=== PATIENT | female | born 1995 | race Caucasian/White ===

== ENCOUNTER 2018-11-14 12:34 | Emergency (ER) | payer MEDICAID, OTHER ==
[~2018-11-14] VITALS: Wt 74.0 kg
[~2018-11-14 12:34] MED LIST: LEVE750T32 PO
[2018-11-14] MEDS ORDERED: SOD CHLORIDE 0.9% 1,000 ML IV STA (12:46)
[2018-11-14] MEDS ORDERED: ONDANSETRON 4 MG INJ IV STA (12:46)
[2018-11-14] MEDS ORDERED: LEVE100018 PO (13:00)
[2018-11-14] MEDS ORDERED: LEVETIRACETAM 500 MG (PMX) 100 ML IVPB ONE (13:00)
[2018-11-14] MEDS ORDERED: ESLI600T PO (13:01)
--- NOTE | 2018-11-14 13:03 | ERD ---
ER Documentation Chief Complaint Chief Complaint seizure while in class no trauma. lasting a few seconds. no fall HPI 23-year-old woman with a history of seizure disorder using Keppra daily brought in by EMS for tonic-clonic seizure while in class. She remains seated one episode occurred, witnessed by classmates. Patient had no loss of bowel or bladder control, no complaints of fevers or chills, no abdominal pain, no vomiting or diarrhea. Patient's mental status improved and she was transported here by EMS without further complications. She states she has about 2-3 seizures per month but has been normal for her since age 15 ROS All systems reviewed and are negative except as per history of present illness. Medications Home Meds Reported Medications Eslicarbazepine Acetate (Aptiom) 600 Mg Tablet, 600 MG PO Q3PM, #30 TAB 11/14/18 Levetiracetam* (Keppra*) 1,000 Mg Tablet, 1000 MG PO BID, TAB 11/14/18 Discontinued Reported Medications Levetiracetam* (Keppra XR*) 750 Mg Tab.sr.24h, 750 MG PO BID 08/04/13 Allergies Allergies: Coded Allergies: No Known Drug Allergies (Verified Allergy, Mild, 11/14/18) PMhx/Soc Anesthesia Reaction: No Hx Respiratory Disorders: No Hx Cardiac Disorders: No Hx Psychiatric Problems: No Hx Miscellaneous Medical Probl: Yes (SEIZURE X 3 YEARS) Hx Alcohol Use: No Hx Substance Use: No Hx Tobacco Use: No Smoking Status: Never smoker FmHx Family History: No diabetes Physical Exam Vitals Vital Signs Date Temp Pulse Resp B/P (MAP) Pulse Ox O2 O2 Flow FiO2 Time Delivery Rate 11/14/18 98.1 98 20 107/68 98 12:41 (81) Physical Exam GENERAL: Well-developed, well-nourished, well-hydrated, in no apparent distress, looks nontoxic in appearance HEENT: Moist mucous membranes, pink conjunctiva, no cervical spine tenderness or step-off deformities, no goiter, no jaundice or icterus, extraocular movements intact without pain. No submandibular induration, and no pharyngeal erythema NEURO: Alert and oriented 3, cranial nerves II through XII intact bilaterally, pupils equal round reactive to light, no focal deficits or facial asymmetry, sensation intact distally Strength 5/5 in upper and lower extremities bilaterally CARDIAC: Regular rate and rhythm, no murmurs rubs or gallops LUNGS: Clear bilaterally no wheezing crackles or stridor ABDOMEN: Soft nontender, no guarding, no rigidity, no rebound, no psoas sign no obturator sign. Normoactive bowel sounds SKIN: Warm and dry to touch, no abrasions, contusions, or hematomas, no lacerations, no ecchymosis, no target lesions, and without ulcers EXTREMITIES: No clubbing cyanosis or edema, calves are bilaterally symmetrical, no Homans sign, no popliteal cord sign. Distal pulses equal and bilateral PSYCH: Normal affect without agitation or irritability Result Diagram: 11/14/18 1257 11/14/18 1257 Results 24 hrs Laboratory Tests Test 11/14/18 12:57 White Blood Count 6.7 10^3/ul Red Blood Count 4.78 10^6/ul Hemoglobin 14.6 g/dl Hematocrit 43.2 % Mean Corpuscular Volume 90.4 fl Mean Corpuscular Hemoglobin 30.5 pg Mean Corpuscular Hemoglobin Concent 33.8 g/dl Red Cell Distribution Width 11.7 % Platelet Count 243 10^3/UL Mean Platelet Volume 11.6 fl Immature Granulocytes % 0.100 % Neutrophils % 51.4 % Lymphocytes % 38.4 % Monocytes % 7.9 % Eosinophils % 1.9 % Basophils % 0.3 % Nucleated Red Blood Cells % 0.0 /100WBC Immature Granulocytes # 0.010 10^3/ul Neutrophils # 3.4 10^3/ul Lymphocytes # 2.6 10^3/ul Monocytes # 0.5 10^3/ul Eosinophils # 0.1 10^3/ul Basophils # 0.0 10^3/ul Nucleated Red Blood Cells # 0.0 10^3/ul Sodium Level 140 mmol/L Potassium Level 3.9 mmol/L Chloride Level 104 mmol/L Carbon Dioxide Level 28 mmol/L Anion Gap 8 Blood Urea Nitrogen 12 mg/dl Creatinine 0.64 mg/dl Est Glomerular Filtrat Rate mL/min > 60 mL/min Glucose Level 103 mg/dl Calcium Level 9.3 mg/dl Total Bilirubin 0.3 mg/dl Direct Bilirubin 0.00 mg/dl Indirect Bilirubin 0.3 mg/dl Aspartate Amino Transf (AST/SGOT) 36 IU/L Alanine Aminotransferase (ALT/SGPT) 38 IU/L Alkaline Phosphatase 97 IU/L Total Protein 7.5 g/dl Albumin 4.0 g/dl Globulin 3.50 g/dl Albumin/Globulin Ratio 1.14 Lipase 87 U/L Current Medications Medications Dose Sig/Emi Start Time Status Last (Trade) Ordered Route PRN Stop Time Admin Dose Reason Admin 100 ml @ ONCE ONCE 11/14/18 DC 11/14/18 Levetiracetam 400 mls/hr IVPB 13:00 13:10 11/14/18 13:14 Sodium 1,000 ml @ Q1H STAT 11/14/18 11/14/18 Chloride 1,000 mls/hr IV 12:46 13:01 11/14/18 13:45 Ondansetron 4 mg ONCE STAT 11/14/18 DC 11/14/18 HCl (Zofran IV 12:46 13:02 Inj) 11/14/18 12:47 Procedures/MDM IV line was established patient was placed on surveillance system monitor rhythm strip revealed a sinus rhythm at about 80 bpm with upright P and T waves. Patient was afebrile I administered 1 L normal saline IV, Keppra 500 mg IV, Zofran 4 mg IV Patient is using implanted contraceptives and denies . CBC and electrolytes are normal, liver function tests normal differential diagnoses considered, included but not limited to acute coronary syndrome, pulmonary embolism, aortic dissection, abdominal aortic aneurysm, sepsis, stroke, meningitis, encephalitis, pneumonia, appendicitis, cholecyst itis, bowel obstruction, pyelonephritis, nephrolithiasis, cystitis, as well as metabolic, hematologic, and electrolyte abnormalities. As well as abscess, cellulitis, fractures, and dislocations. Patient feels much better at this time, and vital signs are normal, symptoms have improved. I did give strict instructions to return to the ED if symptoms continue or worsen, patient will otherwise follow-up with primary care physician. Patient understood instructions and agreed to plan. Disclaimer: Inadvertent spelling and grammatical errors are likely due to EHR/dictation software use and do not reflect on the overall quality of patient care. Also, please note that the electronic time recorded on this note does not necessarily reflect the actual time of the patient encounter. Departure Diagnosis: Primary Impression: Seizure disorder Additional Impression: Breakthrough seizure Condition: Good JAMES LUCERO MD November 14, 2018 13:03
[2018-11-14 14:39] VITALS: BP 128/75; PULSE 70; RESP 18
== END 2018-11-14 14:49 | disposition home or self-care (01) ==
LOC: E/R 12:34
DX: G40.909 Epilepsy, unspecified, not intractable, without status epilepticus (principal); R40.2142 Coma scale, eyes open, spontaneous, at arrival to emergency department; R40.2252 Coma scale, best verbal response, oriented, at arrival to emergency department; R40.2362 Coma scale, best motor response, obeys commands, at arrival to emergency department
CPT/HCPCS: 36415; 80053; 83690; 85025; 96374; 96375; J1953; J2405; J7030; Z7502